=== PATIENT | female | born 1995 | race African-American/Black ===

== ENCOUNTER 2016-06-09 16:50 | Emergency (ER) | payer OTHER ==
--- NOTE | 2016-06-09 16:54 | PDOC ---
History of Present Illness <Rody Mcmahon - Last Filed: 06/09/16 18:02> <AmarilysJerome Claire - Last Filed: 06/09/16 18:25> - General Chief Complaint: Syncope/Near Syncope Stated Complaint: SYNCOPE Time Seen by Provider: 06/09/16 16:53 - History of Present Illness Initial Comments: 06/09/16 17:53 The patient is a 20 year old female with no past medical hx who presents to the ED via EMS for evaluation of a syncopal episode this afternoon. The patient states she was standing in line at the cafeteria during lunch at school when she felt as if she was going to pass out. The patient notes she got off of the line and went to sit down. She reports she had somebody walking with her for assistance and then she blacked out. She states she did not hit her head but she felt nauseous immediately after the episode. She had a normal day at school and has been eating and drinking normally. The patient has had numerous syncopal episodes in the past and states she can feel when she is about to have one. The patient states the last time she passed out was 2.5 weeks ago. In 2014 , she had a syncopal episode while she was in the shower and went to [facility] ED where she had an unremarkable CT Scan of her head. The patient states she feels fine while in the ED and has no further complaints at this time. She denies a family hx of diabetes and heart problems. The patient denies chest pain, SOB The patient denies abdominal pain, nausea, vomiting, diarrhea The patient denies fever, chills, headache (Rody Mcmahon) 06/09/16 18:08 Physical exam: Alert and oriented 3, well-developed well-nourished, no acute distress, cheerful and cooperative. No orthostatic symptoms. Arises without difficulty and no unsteadiness of gait Afebrile, vital signs normal Head atraumatic. No sign of injury visible or palpable PERRLA 4 mm, fundi benign with sharp disc margins and good central venous pulsations. EOMs full without diplopia. There seems to be some prominence of the globes and lid lag. Neck supple without bruit mass or nodes. Thyroid not palpable Lungs clear with full breath sounds throughout bilaterally CV S1 and S2 normal without murmur or gallop pulses full and symmetric no JVD or edema. No blood pressure or pulse changes with standing Abdomen soft nontender without mass or organomegaly Neuro: C2 to 12 intact. Strength full and symmetric. No focal sensory or motor deficits. Cerebellar intact. Gait stable and unimpaired Skin clear, no rash, adequate turgor and what mucous membranes Extremities no CCE Impression: Most likely recurrent vasovagal syncope, no sign of any cardiac or central nervous system disease. Patient asymptomatic and looks completely well at present. There is however the suggestion of mild exophthalmus Plan: EKG is normal. CBC and chemistries are normal. Thyroid function tests pending. Advised to stay hydrated, avoid warm crowded places, equilibrate before changing positions, and follow-up with primary physician. Fully ambulatory and in no pain or other distress upon discharge with a friend to follow-up as directed 06/09/16 18:14 (Jerome Panda) Past History <Rody Mcmahon - Last Filed: 06/09/16 18:02> - Psycho/Social/Smoking Cessation Hx Anxiety: No Suicidal Ideation: No Smoking History: Former smoker Have you smoked in the past 12 months: No Hx Alcohol Use: No Drug/Substance Use Hx: No Substance Use Type: None <Jerome Panda - Last Filed: 06/09/16 18:25> - Past Medical History Allergies/Adverse Reactions: Allergies Allergy/AdvReac Type Severity Reaction Status Date / Time cefaclor [From Ceclor] Allergy Unknown Verified 06/09/16 16:51 Home Medications: Ambulatory Orders NK [No Known Home Medication] 06/09/16 Review of Systems - Review of Systems Able to Perform ROS?: Yes <Rody Mcmahon - Last Filed: 06/09/16 18:02> <Jerome Panda - Last Filed: 06/09/16 18:25> - Review of Systems Comments:: 06/09/16 17:53 CONSTITUTIONAL: Absent: fever, chills, diaphoresis, generalized weakness, malaise, loss of appetite HEENT: Absent: rhinorrhea, nasal congestion, throat pain, throat swelling, difficulty swallowing, mouth swelling, ear pain, eye pain, visual Changes CARDIOVASCULAR: +Syncope. Absent: chest pain, palpitations, irregular heart rate, lightheadedness, peripheral edema RESPIRATORY: Absent: cough, shortness of breath, dyspnea with exertion, orthopnea, wheezing, stridor, hemoptysis GASTROINTESTINAL: Absent: abdominal pain, abdominal distension, nausea, vomiting, diarrhea, constipation, melena, hematochezia GENITOURINARY: Absent: dysuria, frequency, urgency, hesitancy, hematuria, flank pain, genital pain MUSCULOSKELETAL: Absent: myalgia, arthralgia, joint swelling SKIN: Absent: rash, itching, pallor HEMATOLOGIC/IMMUNOLOGIC: Absent: easy bleeding, easy bruising, lymphadenopathy, frequent infections ENDOCRINE: Absent: unexplained weight gain, unexplained weight loss, heat intolerance, cold intolerance NEUROLOGIC: Absent: headache, focal weakness or paresthesias, dizziness, unsteady gait, seizure, mental status changes, bladder or bowel incontinence PSYCHIATRIC: Absent: anxiety, depression, suicidal or homicidal ideation, hallucinations. ( Rody Mcmahon) *Physical Exam <Rody Mcmahon - Last Filed: 06/09/16 18:02> <Jerome Panda - Last Filed: 06/09/16 18:25> - Vital Signs Last Vital Signs Temp Pulse Resp BP Pulse Ox 97.6 F 55 L 18 110/62 100 06/09/16 16:50 06/09/16 16:50 06/09/16 16:50 06/09/16 16:50 06/09/16 16:50 - Physical Exam Comments: 06/09/16 17:57 GENERAL: Well developed, well nourished. Awake and alert. In no acute distress. HEENT: Normocephalic, atraumatic. PERRLA, EOMI. No conjunctival pallor. Sclera are non- icteric. Moist mucous membranes. Oropharynx is clear. NECK: Supple. Full ROM. No JVD. Carotid pulses 2+ and symmetric, without bruits. No thyromegaly. No lymphadenopathy. CARDIOVASCULAR: Regular rate and rhythm. No murmurs, rubs, or gallops. Distal pulses are 2+ and symmetric. PULMONARY: No evidence of respiratory distress. Lungs clear to auscultation bilaterally. No wheezing, rales or rhonchi. ABDOMINAL: Soft. Non-tender. Non-distended. No rebound or guarding. No organomegaly. Normoactive bowel sounds. MUSCULOSKELETAL Normal range of motion at all joints. No bony deformities or tenderness. No CVA tenderness. EXTREMITIES: No cyanosis. No clubbing. No edema. No calf tenderness. SKIN: Warm and dry. Normal capillary refill. No rashes. No jaundice. NEUROLOGICAL: Alert, awake, appropriate. Cranial nerves 2-12 intact. No deficits to light touch and temperature in face, upper extremities and lower extremities. No motor deficits in the in face, upper extremities and lower extremities. Normoreflexic in the upper and lower extremities. Normal speech. Toes are downgoing bilaterally. Gait is normal without ataxia. PSYCHIATRIC: Cooperative. Good eye contact. Appropriate mood and affect. (Rody Mcmahon) ED Treatment Course - LABORATORY CBC & Chemistry Diagram: 06/09/16 17:15 06/09/16 17:16 <Rody Mcmahon - Last Filed: 06/09/16 18:02> - LABORATORY CBC & Chemistry Diagram: 06/09/16 17:15 06/09/16 17:16 <Jerome Panda - Last Filed: 06/09/16 18:25> - ADDITIONAL ORDERS Additional order review: Laboratory Results 06/09/16 06/09/16 17:16 17:00 Sodium 138 Potassium 3.8 Chloride 106 Carbon Dioxide 25 Anion Gap 7 L BUN 12 Creatinine 0.9 Creat Clearance w eGFR > 60 Random Glucose 119 H Calcium 9.1 Total Bilirubin 0.3 AST 18 ALT 13 Alkaline Phosphatase 53 Total Protein 6.7 Albumin 3.7 Serum , Qual Negative 06/09/16 17:15 RBC 3.93 MCV 86.2 MCHC 33.1 RDW 13.6 MPV 6.5 L Neutrophils % 65.0 Lymphocytes % 21.9 Monocytes % 12.4 H Eosinophils % 0.3 Basophils % 0.4 Medical Decision Making <Rody Mcmahon - Last Filed: 06/09/16 18:02> <Jerome Panda - Last Filed: 06/09/16 18:25> - Medical Decision Making 06/09/16 17:13 EKG reviewed: Sinus bradycardia 59/m. Mild sinus arrhythmia. No ST-T wave changes. Otherwise normal EKG. 06/09/16 18:24 Labs reviewed: CBC and chemistries normal. TSH pending. test negative Patient ate with a friend, fully ambulatory and with no symptoms upon discharge to follow-up as directed. (Jerome Panda) *DC/Admit/Observation/Transfer <Rody Mcmahon - Last Filed: 06/09/16 18:02> - Discharge Dispostion Admit: No <Jerome Panda - Last Filed: 06/09/16 18:25> Diagnosis at time of Disposition: Vasovagal syncope - Discharge Dispostion Disposition: HOME Condition at time of disposition: Improved - Referrals Referrals: Nathalia Machado MD [Staff Physician] - - Patient Instructions Printed Discharge Instructions: DI for Syncope in Adults (Fainting) - Post Discharge Activity Work/School Note: Back to School - Attestations Scribe Attestion: 06/09/16 18:02 Documentation prepared by Rody Mcmahon, acting as medical assisting program director for Jerome Feldman MD/DO. (Rody Mcmahon)
[2016-06-09 16:57] VITALS: BMI 25.7
[2016-06-09 17:26] LABS: BASOPHIL 0.4 % (0-2.0); EOSINOPHIL 0.3 % (0-4.5); MCH 28.5 pg (25.7-33.7); MCHC 33.1 g/dl (32.0-36.0); MEAN CELL VOLUME 86.2 fl (80-96); MEAN PLT VOLUME 6.5 fl (7.5-11.1); PLATELET COUNT 311 K/MM3 (134-434); RDW 13.6 % (11.6-15.6); WHITE BLOOD COUNT 4.7 K/mm3 (4.0-10.0)
[2016-06-09 17:38] LABS: ALBUMIN 3.7 g/dl (3.5-5.0); ALK PHOS 53 U/L (32-92); ANION GAP 7 (8-16); BILIRUBIN,TOTAL 0.3 mg/dl (0.2-1.0); CALCIUM 9.1 mg/dl (8.4-10.2); CO2 25 mmol/L (22-28); CREATININE 0.9 mg/dl (0.6-1.3); GLUCOSE,RANDOM 119 mg/dl (74-106); SGOT/AST 18 U/L (10-42); SGPT/ALT 13 U/L (10-40); TOT PROT 6.7 g/dl (6.4-8.3)
[2016-06-09] MEDS ORDERED: SODIUM CHLORIDE 1,000 ML IV STA (17:47)
[2016-06-09 19:02] VITALS: BP 116/53; PULSE 79; TEMP 98.2
[2016-06-09 22:33] LABS: THYROID STIMULATING HORMONE 0.22 uIU/ml (0.358-3.74)
--- NOTE | 2016-06-10 13:46 | EKG ---
Test Reason : Blood Pressure : / mmHG Vent. Rate : 059 BPM Atrial Rate : 059 BPM P-R Int : 164 ms QRS Dur : 088 ms QT Int : 392 ms P-R-T Axes : -10 060 034 degrees QTc Int : 388 ms Sinus bradycardia (versus possible ECTOPIC ATRIAL RHYTHM ) NO PREVIOUS ECGS AVAILABLE Confirmed by RICKEY HAMMOND MD ([id number]) on 06/10/2016 1:46:08 PM Referred By: DR JIMENEZ Confirmed By:RICKEY HAMMOND MD
== END 2016-06-09 18:50 | disposition home or self-care (01) ==
LOC: FER 16:50
PROC: 3E0337Z Introduction of Electrolytic and Water Balance Substance into Peripheral Vein, Percutaneous Approach (ICD-10-PCS; principal; 2016-06-09)
DX: R55 Syncope and collapse (principal); Z87.891 Personal history of nicotine dependence
CPT/HCPCS: 36415; 80053; 84443; 84703; 85025; 93005; 96360; 99285-25

== ENCOUNTER 2016-08-06 15:32 | Emergency (ER) | payer OTHER ==
--- NOTE | 2016-08-06 15:37 | PDOC ---
History of Present Illness - History of Present Illness Initial Comments: 08/06/16 17:24 The patient is a 20 year old 8 week female with no past medical hx who presents to the ED complaining of nausea and vomiting since this morning. The patient reports multiple episodes of vomiting and notes she started to vomit blood so she came to the ED for further evaluation. The patient reports she found out she was in the beginning of July. She reports she missed her period and this is rare for her so she went to an urgent care and was informed she was . The patient has not seen her OB yet. She states her OB is in [place] and she goes to school in the [place]. This is her first . The patient has not had an Ultrasound. The patient denies any abdominal pain, diarrhea, vaginal bleeding, dysuria, fever, chills. Surgical: None <Rody Mcmahon - Last Filed: 08/06/16 18:19> - General History Source: Patient Exam Limitations: No Limitations - History of Present Illness Initial Comments: 08/06/16 16:55 <Kaitlin Cummings - Last Filed: 08/07/16 08:48> - General Chief Complaint: Nausea/Vomiting Stated Complaint: VOMTING, (8 WKS) Time Seen by Provider: 08/06/16 15:36 Past History <Rody Mcmahon - Last Filed: 08/06/16 18:19> - Psycho/Social/Smoking Cessation Hx Anxiety: No Suicidal Ideation: No Smoking History: Former smoker Have you smoked in the past 12 months: No Number of Cigarettes Smoked Daily: 1 Hx Alcohol Use: No Drug/Substance Use Hx: No Substance Use Type: None <Kaitlin Cummigns - Last Filed: 08/07/16 08:48> - Past Medical History Allergies/Adverse Reactions: Allergies Allergy/AdvReac Type Severity Reaction Status Date / Time cefaclor [From [facility]] Allergy Unknown Verified 06/09/16 16:51 Home Medications: Ambulatory Orders Metoclopramide HCl [Metoclopramide HCl Odt] 5 mg PO BID PRN #20 tab.rapdis 08/07 Review of Systems - Review of Systems Able to Perform ROS?: Yes Comments:: 08/06/16 17:24 GENERAL/CONSTITUTIONAL: No: fever, chills, weakness, loss of appetite. HEAD, EYES, EARS, NOSE AND THROAT: No: change in vision, ear pain, discharge, sore throat, throat swelling. CARDIOVASCULAR: No: chest pain, lightheadedness, palpitations, syncope RESPIRATORY: No: cough, shortness of breath, wheezing, hemoptysis, stridor. GASTROINTESTINAL: +Nausea, vomiting. No: abdominal cramping, diarrhea, rectal bleeding, constipation. GENITOURINARY: No: vaginal bleeding, dysuria, hematuria, frequency, urgency, flank pain. MUSCULOSKELETAL: No: back pain, neck pain, joint pain, muscle swelling or pain SKIN: No: lesions, pallor, rash or easy bruising. NEUROLOGIC: No: headache, vertigo, paresthesias, weakness ENDOCRINE: No: unexplained weight gain or loss HEMATOLOGIC/LYMPHATIC: No: anemia, easy bleeding, swelling nodes <Rody Mcmahon - Last Filed: 08/06/16 18:19> *Physical Exam - Physical Exam Comments: 08/06/16 17:25 GENERAL: The patient is in no acute distress. HEAD: Normal with no signs of trauma. EYES: PERRLA, EOMI, sclera anicteric, conjunctiva clear. ENT: Ears normal, nares patent, oropharynx clear without exudates. Moist mucous membranes. NECK: Normal range of motion, supple without lymphadenopathy, JVD, or masses. LUNGS: Breath sounds equal, clear to auscultation bilaterally. No wheezes, and no crackles. HEART:Regular rate and rhythm, normal S1 and S2 without murmur, rub or gallop. ABDOMEN: Soft, nontender, normoactive bowel sounds. No guarding, no rebound. EXTREMITIES: Normal range of motion, no edema. No clubbing or cyanosis. No erythema, or tenderness. NEUROLOGICAL: Cranial nerves II through XII grossly intact. Normal speech. No focal neurological deficits. MUSCULOSKELETAL: Back nontender to palpation, no CVA tenderness SKIN: Warm, Dry, normal turgor, no rashes or lesions noted. <Rody Mcmahon - Last Filed: 08/06/16 18:19> ED Treatment Course - LABORATORY CBC & Chemistry Diagram: 08/06/16 17:25 08/06/16 17:25 - RADIOLOGY Radiograph Interpretation: 08/06/16 18:19 US/TRANSVAGINAL US PREG Abdominal pain. Early . Pelvis ultrasound, transabdominal and transvaginal The uterus is gravid with a single intrauterine gestational sac and fetus identified. [place]-rump length measures 1.7 cm consistent with 8 weeks 1 day of gestation. heart rate is 175 bpm. A tiny yolk sac is identified. Uterine cervix is closed measuring 3.2 cm in sagittal length. Hypoechoic density in the left myometrium at the fundus measuring 1.3 cm compatible with a fibroid The right ovary measures 4.4 x 3.1 cm with normal vascular flow. There is a complex cyst within the right ovary measuring 2.3 x 1.4 cm that may represent a ruptured hemorrhagic corpus luteum cyst Left ovary measures 3.4 x 1.5 cm and appears unremarkable with normal vascular flow Impression: Single live intrauterine with estimated gestational age of 8 weeks and 1 day Small fibroid at the fundus. Likely partially ruptured hemorrhagic corpus luteum cyst in the right ovary measuring 2.3 x 1.4 cm Reported By: Jennifer Gilliam MD 08/06/16 1807 <Rody Mcmahon - Last Filed: 08/06/16 18:19> - LABORATORY CBC & Chemistry Diagram: 08/06/16 17:25 08/06/16 17:25 <Kaitlin Cummings - Last Filed: 08/07/16 08:48> Medical Decision Making - Medical Decision Making 08/06/16 15:37 A portion of this note was documented by scribe services under my direction. I have reviewed the details of the note, within reason, and agree with the documentation with the following case summary and management plan written by me. Nursing documentation reviewed and incorporated into medical decision making 08/06/16 16:55 This is a generally healthy 20-year-old female LMP 8 weeks ago Presenting to the ER with a complaint of intractable vomiting Her concern was that one of the last times she vomited, she noted bleeding No lower abdominal pain Pt has not been seen by [facility] (her OB is in [place] and she has not seen a local ob) No spotting now, pt was spotting several weeks ago No discharge Will do basic labs Will give Reglan for nausea Will do US Will re assess 08/06/16 18:10 Laboratory Tests 08/06/16 08/06/16 17:25 17:25 WBC 6.6 D Hgb 12.3 Hct 36.1 Plt Count 348 Neutrophils % 66.9 Lymphocytes % 23.3 Sodium 131 L Potassium 4.0 Chloride 103 Carbon Dioxide 25 BUN 12 Creatinine 0.8 Single live IUP 8 weeks 1 day Type and Screen is still pending Pt signed out to Dr king Pending only Type and Screen <Kaitlin Cummings - Last Filed: 08/07/16 08:48> *DC/Admit/Observation/Transfer - Attestations Scribe Attestion: 08/06/16 17:24 Documentation prepared by Rody Mcmahon, acting as director medical writing for Kaitlin Cummings MD/. <Rody Mcmahon - Last Filed: 08/06/16 18:19> - Discharge Dispostion Admit: No <Kaitlin Cummings - Last Filed: 08/07/16 08:48> Diagnosis at time of Disposition: Hyperemesis gravidarum - Discharge Dispostion Disposition: HOME Condition at time of disposition: Good - Referrals Referrals: Diana Rebolledo DO [Staff Physician] - - Patient Instructions Printed Discharge Instructions: DI for Hyperemesis Gravidarum Additional Instructions: Mechelle Thank you for coming in to the ER Please follow up with the extension associate Please return to the ER for any other concerns or complaints
[2016-08-06] MEDS ORDERED: METOCLOPRAMIDE HCL INJECTION 10 MG/2 ML VIAL IVPB ONE (15:38)
[2016-08-06] MEDS ORDERED: SODIUM CHLORIDE 1,000 ML IV STA (15:38)
[2016-08-06 17:50] LABS: ANION GAP 3 (8-16); CALCIUM 9.1 mg/dl (8.4-10.2); CO2 25 mmol/L (22-28); CREATININE 0.8 mg/dl (0.6-1.3); GLUCOSE,RANDOM 93 mg/dl (74-106)
[2016-08-06 17:51] VITALS: BP 116/62; PULSE 70; TEMP 98.7; BMI 25.7
[2016-08-06 17:51] LABS: BASOPHIL 0.7 % (0-2.0); EOSINOPHIL 0.3 % (0-4.5); MCH 29.4 pg (25.7-33.7); MEAN CELL VOLUME 86.5 fl (80-96); MEAN PLT VOLUME 6.9 fl (7.5-11.1); NEUTROPHILS 66.9 % (42.8-82.8); PLATELET COUNT 348 K/MM3 (134-434); RDW 12.9 % (11.6-15.6); WHITE BLOOD COUNT 6.6 K/mm3 (4.0-10.0)
== END 2016-08-06 21:09 | disposition home or self-care (01) ==
LOC: FER 15:32
PROC: 3E033GC Introduction of Other Therapeutic Substance into Peripheral Vein, Percutaneous Approach (ICD-10-PCS; principal; 2016-08-06)
PROC: 3E0337Z Introduction of Electrolytic and Water Balance Substance into Peripheral Vein, Percutaneous Approach (ICD-10-PCS; 2016-08-06)
DX: O26.891 Other specified pregnancy related conditions, first trimester (principal); O21.0 Mild hyperemesis gravidarum; Z3A.08 8 weeks gestation of pregnancy; Z72.0 Tobacco use
CPT/HCPCS: 36415; 76817-TC; 80048; 84702; 85025; 86850; 86900; 86901; 99283-25